=== PATIENT | female | born 1980 | race Caucasian/White ===

== ENCOUNTER 2021-05-10 23:50 | Emergency (ER) | payer SELFPAY ==
[~2021-05-10] VITALS: Ht 154.9 cm; Wt 81.6 kg
[2021-05-11 00:02] VITALS: BP 121/78
--- NOTE | 2021-05-11 00:07 | NUR ---
TO LOBBY FOLLOWING TRIAGE
--- NOTE | 2021-05-11 02:42 | NUR ---
[place] chauhan in [facility] - 05/11/21 at 0243 by RITESH PT TAKEN TO BED 3
== END 2021-05-11 02:44 | disposition left against medical advice (07) ==
LOC: MED 23:50
DX: Z53.21 Procedure and treatment not carried out due to patient leaving prior to being seen by health care provider (principal)

== ENCOUNTER 2022-12-07 08:16 | Emergency (ER) | payer OTHER ==
[~2022-12-07] VITALS: Ht 154.9 cm; Wt 78.5 kg
[2022-12-07 08:41] VITALS: BP 125/84
--- NOTE | 2022-12-07 08:42 | NUR ---
PT AMBULATED TO BED 02
--- NOTE | 2022-12-07 09:23 | NUR ---
here gor evaluation for sr throat. sharp pain, painful to swallow , no cough , no stridor , MD at bs to examine
[2022-12-07] MEDS ORDERED: PENICILLIN G BENZATHINE L-A 1.2 MU/2 ML SYR IM ONE (09:25)
[2022-12-07] MEDS ORDERED: KETOROLAC 60 MG/2 ML VIAL IM ONE (09:25)
[2022-12-07] MEDS ORDERED: PRED20TA5 PO (09:32)
[2022-12-07] MEDS ORDERED: IBUP-2213 PO (09:32)
--- NOTE | 2022-12-07 09:47 | NUR ---
Patient discharged with v/s stable. Written and verbal SORE THROAT after care instructions given and explained. Patient verbalized understanding. Ambulatory with steady gait. All questions addressed prior to discharge. Advised to follow up with PMD. PT. REQUESTED 1 EXTRA DAY OFF FOR 12-09-22 TO HELP HER RECOVER. APPROVED. NOTE HAND WRITTEN FOR PT. PT. STABLE FOR D/C, NO ACUTE DISTRESS
--- NOTE | 2022-12-07 09:52 | NUR ---
Patient discharged with v/s stable. Written and verbal after care instructions given and explained. Patient alert, oriented and verbalized understanding of instructions. Ambulatory with to home. All questions addressed prior to discharge. ID band removed. Patient advised to follow up with PMD. Rx of MOTRIN, PREDNISONE given. Patient educated on indication of medication including possible reaction and side effects. Opportunity to ask questions provided and answered.
== END 2022-12-07 09:46 | disposition home or self-care (01) ==
LOC: MED 08:16
DX: J02.0 Streptococcal pharyngitis (principal)
CPT/HCPCS: 96372; 99284; J0561; J1885

== ENCOUNTER 2023-07-20 13:39 | Emergency (ER) | payer OTHER ==
[~2023-07-20] VITALS: Ht 154.9 cm; Wt 76.7 kg
[~2023-07-20 13:39] MED LIST: IBUP-2213 PO; PRED20TA5 PO
[2023-07-20 14:00] VITALS: BP 107/74; PULSE 94; RESP 18; TEMP 98.7; O2SAT 100
[2023-07-20 16:01] LABS: APPEARANCE,URINE CLEAR (CLEAR); BILIRUBIN,URINE NEGATIVE (NEGATIVE); BLOOD, URINE 3+ (NEGATIVE); COLOR,URINE YELLOW (YELLOW); LEUKOCYTE ESTERASE ,URINE NEGATIVE (NEGATIVE); NITRITE, URINE NEGATIVE (NEGATIVE); PH,URINE 6.5 (5.0-9.0); PROTEIN,URINE NEGATIVE (NEGATIVE); UGLUCOSE NEGATIVE (NEGATIVE); UROBILINOGEN,URINE 0.2 EU/dL (0.2 - 1)
[2023-07-20 16:06] LABS: RBC,URINE 11-20 (MOD) /HPF (0-5)
[2023-07-20 16:07] LABS: BACTERIA,URINE OCCASSIONAL /HPF (None Seen); WBC,URINE 0-5 /HPF (0-5)
[2023-07-20] MEDS ORDERED: CYCL-711 PO (16:15)
[2023-07-20] MEDS ORDERED: CEPH-588 PO (16:15)
[2023-07-20] MEDS ORDERED: IBUP-2213 PO (16:15)
[2023-07-20] MEDS ORDERED: LID5T TP (16:15)
[2023-07-20] MEDS ORDERED: KETOROLAC 30 MG/ML VIAL ONE (17:07)
[2023-07-20] MEDS ORDERED: LIDOCAINE 5% 1 EA PATCH TP ONE (17:08)
[2023-07-20] MEDS: KETOROLAC 30 MG/ML VIAL IM ONE (17:12)
[2023-07-20] MEDS: LIDOCAINE 5% 1 EA PATCH TP ONE (17:13)
[2023-07-20 17:27] VITALS: BP 107/64; PULSE 93; RESP 16; TEMP 98; O2SAT 100
== END 2023-07-20 17:28 | disposition home or self-care (01) ==
LOC: MED 13:39
DX: S16.1XXA Strain of muscle, fascia and tendon at neck level, initial encounter (principal); N39.0 Urinary tract infection, site not specified; Z79.899 Other long term (current) drug therapy; Z79.2 Long term (current) use of antibiotics; Z79.1 Long term (current) use of non-steroidal anti-inflammatories (NSAID); X58.XXXA Exposure to other specified factors, initial encounter; Y92.89 Other specified places as the place of occurrence of the external cause; Y93.89 Activity, other specified; Y99.8 Other external cause status
CPT/HCPCS: 81001; 81025; 96372; 99283; J1885